=== PATIENT | female | born 1940 | race Caucasian/White ===

== ENCOUNTER 2017-09-15 09:07 | Observation (INO) ==
[2017-09-15] MEDS ORDERED: CeFAZolin Syr 2,000MG/20 ML 2,000 MG/20 ML SYRINGE IVPB ONE ×2 (09:26→14:36)
[2017-09-15] MEDS ORDERED: Lidocaine -MPF 1% 2 ML VIAL ID ONE (09:26)
[2017-09-15] MEDS ORDERED: Plasma-Lyte A (PH 7.4) 1,000 ML IVC SCH ×2 (09:30→14:36)
--- NOTE | 2017-09-15 10:13 | Anesthesia Evaluation PreOp ---
Date of Encounter: 09/15/17 Time of Encounter: 10:11 - Past History Planned Operation: correct right foot hammertoes, multiple Cardiac History: HTN, Arrhythmia (hx a-fib s/p ablation), Pacemaker/ICD (not dependent), Other (PE x 2) Pulmonary History: Asthma [employer]ATOR History: TIA (no residual) Other Medical History: Thyroid (hypo) Anesthesia History: No Prior Anesthetic Complications, Past Anesthesia (pacer, b /l TKA, DYANA, appy, right CEA, bladder stim) Alcohol Use: none Drug use: none Medications and Allergies Aspirin Enteric Coated [Aspirin EC] 81 mg PO DAILY 01/15/16 [History] Citalopram Hydrobromide [Citalopram HBr] 40 mg PO DAILY 01/15/16 [History] Zolpidem [Ambien] 10 mg PO HS PRN 01/15/16 [History] Calcium Carbonate/Vitamin D3 [Calcium 500 + Vit D 200 Caplet] 1 tab PO DAILY 09/01 [History] Cranberry 500 mg PO DAILY 09/15/17 [History] Divalproex (12 HR) [Depakote (12 HR)] 500 mg PO DAILY 09/15/17 [History] Gabapentin [Neurontin] 300 mg PO QID 09/15/17 [History] Levothyroxine [Synthroid] 75 mcg PO DAILY 09/15/17 [History] Metoprolol XL (24 HR) Succ [Toprol XL] 25 mg PO DAILY 09/15/17 [History] Nitrofurantoin (BID) [Macrobid] 100 mg PO BID 09/15/17 [History] 3 Allergy/AdvReac Type Severity Reaction Status Date / Time acetaminophen [From Lortab] AdvReac Itching Verified 09/15/17 09:35 ciprofloxacin [From Cipro] AdvReac Nausea Verified 09/15/17 09:35 codeine AdvReac Nausea Verified 09/15/17 09:35 diphenhydramine AdvReac Anxiety Verified 09/15/17 09:35 [From Benadryl] hydrocodone [From Lortab] AdvReac Itching Unverified 09/15/17 09:35 iodine AdvReac Itching Verified 09/15/17 09:35 metronidazole [From Flagyl] AdvReac Nausea Verified 09/15/17 09:35 sulfamethoxazole AdvReac Nausea Verified 09/15/17 09:35 [From Bactrim] trimethoprim [From Bactrim] AdvReac Nausea Verified 09/15/17 09:35 - Meds/Allergy Pre-op Review Medications Reviewed: Yes Allergies Reviewed: Yes Beta Blockers on Current Med List: Yes If Beta Blockers taken, Date/Time (Last Dose taken): today 1030 Anesthesia Results - Labs Laboratory Tests 08/30/17 08/30/17 15:15 15:15 Hgb 11.7 Hct 36.7 Potassium 4.2 Creatinine 0.86 Anesthesia Exam Selected Entries 09/15/17 09:34 Temperature 97.2 F L Pulse Rate 79 Respiratory Rate 18 Blood Pressure 121/67 O2 Sat by Pulse Oximetry 97 Weight: 69kg NPO (# of Hours): 8 - HEENT Pupil (Motor): EOMI Mallampati: II Teeth: Normal Oral Opening: Greater than 3 - [employer] LOC: Oriented [employer] Motor: Normal RUE, Normal LUE, Normal RLE, Normal LLE, Normal Face [employer] Sensory: Normal: RUE, LUE, RLE, LLE, Face - Cardiac Rhythm: Regular Murmur: None - Pulmonary Breath Sounds: bilateral Clear Respiratory Effort: Symmetrical Anesthesia Assess/Plan ASA Score: 3 Modified [place] Scale for Level of Consciousness: Cooperative, oriented, and tranquil Anesthetic Plan: General Monitoring Plan: Standard Monitors Recovery Plan: PACU (agrees to GA)
[2017-09-15] MEDS ORDERED: *HR* Propofol 200 MG/20 ML VIAL IVP ONE (10:33)
[2017-09-15] MEDS ORDERED: Dexamethasone 4 MG/ML VIAL ONE ×2 (10:33)
[2017-09-15] MEDS ORDERED: *HR* FentaNYL (PF) 100 MCG/2 ML VIAL ONE (10:33)
[2017-09-15] MEDS ORDERED: Lidocaine -MPF 2% 2 ML VIAL ONE (10:33)
[2017-09-15] MEDS ORDERED: Ondansetron 4 MG/2 ML VIAL ONE (10:33)
[2017-09-15] MEDS ORDERED: Metoprolol XL (24 HR) Succ 25 MG TAB.ER.24H PO SCH (10:48)
[2017-09-15] MEDS ORDERED: Bupivacaine/EPI 1:200k 0.5%PF 30 ML VIAL ONE (11:07)
[2017-09-15] MEDS ORDERED: Bupivacaine-MPF 0.25% 10 ML VIAL ONE (11:07)
[2017-09-15] MEDS ORDERED: Bupivacaine/Clonidine Syringe 1 EACH SYRINGE ONE (11:08)
--- NOTE | 2017-09-15 11:12 | History & Physical Report ---
Date of Encounter: 09/15/17 Time of Encounter: 11:11 24 Hour HP Update - Instructions Instructions: If the History and Physical is less than 30 days old and was completed prior to A.M. admission and or procedure and has NOT been updated on calendar day of procedure please complete this update prior to performing procedure. - Update Patient reports changes in Medical Condition: No Changes in examination, assessment, or condition: No Changes in Medication: No Preop tests/diagnostics Reviewed: Yes Pre-Op MRSA Screen: Negative Surgery Remains Indicated: Yes Consent for Planned Operative Procedure(s) Verified: Yes
[2017-09-15] MEDS ORDERED: *HR* PHENYLEPHRINE 1,000 MCG/10 ML SYRINGE IVP ONE (11:45)
[2017-09-15] MEDS ORDERED: MORPHINE SUL Oral CONC 10 MG/0.5 ML ORAL.SYG SL PRN (12:09)
[2017-09-15] MEDS ORDERED: traMADol 50 MG TABLET PO PRN (13:47)
--- NOTE | 2017-09-15 14:03 | Anesthesia Evaluation Post Op ---
Date of Encounter: 09/15/17 Time of Encounter: 14:02 - Vital Signs Vital Signs: Vital Signs/O2 Sat/Glucose, Most Recent Temp Pulse Resp BP Pulse Ox 97.2 F L 79 18 121/67 97 09/15/17 09:34 09/15/17 09:34 09/15/17 09:34 09/15/17 09:34 09/15/17 09:34 - Lungs Lungs: Clear Ascult./Percussion - Airway Airway: Non-obstructed - Cardiovascular Regular Rate - Mental Status Mental Status: Alert & Oriented, Answers Appropriately - Pain Pain Scale: 0 Pain Scale used: Numeric (1 - 10) - Nausea Vomiting Nausea Vomiting: Not Present - Hydration Hydration: Ice chips, Has not voided Notes: 09/15/17 14:03 AAOx3,VSS with no complaints - Discharge PostOp Status: Transfer Patient to floor
[2017-09-15] MEDS: Gabapentin 300 MG CAPSULE PO SCH ×2 (15:44→21:21)
--- NOTE | 2017-09-15 16:49 | Orthopedic Operative Note ---
Date of procedure: 09/15/17 Pre-op diagnosis: Hammer toe deformity #1 #2 #3-4 #5 right foot Post-op diagnosis: same Procedure: 09/15/17 16:46 #1 correction of hammertoe deformity arthrodesis, IPJ #1 toe right foot #2 correction hammertoe deformity arthrodesis, PIPJ #2 toe right foot #3 correction of hammertoe deformity arthrodesis PIPJ #3 toe right foot #4 correction of hammertoe deformity arthrodesis PIPJ #4 toe right foot #5 correction of hammertoe deformity resection of, head of proximal phalanx, #5 toe right foot Implants: #1:0.62 K wires 2 for the right great toe #2: 0.62 K wire 1 #4 toe right foot #3 Arthrex 2.5 PIPJ dart implants 2 toe (#2 #3 right foot). Complications: None Anesthesia: other (LMA) Local Anesthetics: 0.25% Sensorcaine HCL with Epinephrine 1:200,000 SubQ (cc), 0.25% Sensorcaine HCL SubQ (cc) Surgeon: Vinny Neely Was there an microbiology lab assistant present: No Estimated blood loss (cc): 10 Tourniquet Time (Minutes): 0 Specimen: None Condition: stable Disposition: PACU Procedure in Detail: 09/15/17 16:52 Details in summary of procedure: The patient was brought to surgical suite. A sign in procedure was performed. The patient was then transferred to the surgical table. She was then positioned properly safely and securely. Right foot and leg was elevated on a foam block. Anesthetic timeout was taken. After smooth induction of general anesthesia was achieved per LMA. At that point right ankle was then prepped with alcohol 3 times in a modified ankle block was carried out using Marcaine with clonidine. The right foot was then prepped and draped in usual sterile manner. Surgical timeout was taken. An S-shaped incision was begun midline of the right great toe in the midportion of the proximal phalanx and brought distally to the IP joint and then medially to the junction of the medial plantar scan of the right great toe and then distally along that line. Sharp dissection was gently deepened to the deep fascial layer were tissue plane was developed medially and laterally. Thus exposing the IP joint. It was then entered in a transverse fashion exposing the head of the proximal phalanx and the base the distal phalanx which was then resected dorsal plantar fashion using command power saw. Bone was flushed with copious sterile saline. 2062 K wires then driven through the distal phalanx exiting the distal pulp of the toe and retrograded into the proximal phalanx and positions were confirmed by C-arm fluoroscopy. Excellent compression and apposition was achieved. The wounds were flushed again with copious amounts sterile saline suction afforded complete visualization. The wound was sprayed with PRP and closure was uneventful using 3-0 Vicryl for subcutaneous tissue and 3-0 Prolene for the skin pins were then cut and bent appropriate angles attention was then turned to the second toe of the right foot. A standard dorsal linear incision was carried out midline the base the proximal phalanx to the middle phalanx. It was sharp in through dissection with a #15 scalpel blade to the deep fascia with gentle retraction tissue plane was developed medially and laterally at the proximal interphalangeal joint. A transverse capsulotomy was performed at the PIPJ head of the proximal phalanx was delivered into the wound by reflecting all the extensor apparatus and tendon proximally as well as distally at the base middle phalanx. Head of the proximal phalanx and the base of the distal phalanx were then resected using a command power saw. At that point an Arthrex 2.5 hammertoe dart implant was then placed according to protocol and found to be appropriate in position and compression. The wound was flushed with copious amount sterile saline finding no bone chips or debris the wound was sprayed with PRP and closure was performed with 3-0 Vicryl for the extensor apparatus and the tendon closure and the skin repaired with 3-0 Prolene. The exact same procedure was then performed for the third toe without any additions or deletions. Attention was then turned to the fourth toe. A standard midline incision was begun at the base the proximal phalanx and brought distally to the middle phalanx. Dissection was continued to the deep fascial layer with #15 scalpel blade where the extensor foot apparatus and the PIPJ was then exposed. The joint was entered and transversely and the soft tissue reflected proximally and distally. The head of the proximal phalanx and the base middle phalanx was then resected using a command power saw. The wound was flushed with copious amounts sterile saline. Attempts to place an Arthrex implant proved to be difficult because of the length of the implant itself. It was then elected to place a K wire. At that point a 62 K wire was then driven through the middle and distal phalanx exiting the distal pulp of the toe and retrograded into the proximal phalanx and placement was confirmed with C-arm fluoroscopy. The toe was then flushed with copious sterile saline and capsular structure and tendon repair were performed with 3-0 Vicryl and skin repaired with 3-0 Prolene Attention was then turned to the fifth toe where standard dorsal linear incision was carried out over the PIPJ. Sharp dissection was continued down to the capsular structures the PIPJ was then entered transversely soft tissue was reflected off the head of the proximal phalanx. Head of the proximal phalanx was then divided and dorsal plantar fashion using command power saw resected cleanly. The wound was flushed with copious amounts sterile saline. Soft tissue was then repaired with 3-0 Vicryl and skin repaired with 3-0 Prolene. Excellent positioning of the digit was achieved. All digits #1, #2 #3 #4 #5 found themselves to be a complete rectus position with excellent correction of the deformity. Capillary wound time is less than 3 seconds after completion of all the procedures and application of the dressings. At that juncture the wounds are dressed with sterile Adaptic 4 x 4' s and Kerlix with a buttress pad underneath the toes for support. Estimated blood loss less than 10 mL complications encountered none patient tolerated the procedure and anesthesia well and was sent to PACU in good condition with vital signs stable.
[2017-09-15] MEDS: *HR* Enoxaparin 80 MG/0.8 ML SYRINGE SQ SCH (16:59)
[2017-09-15] MEDS: traMADol 50 MG TABLET PO PRN (18:20)
[2017-09-15] MEDS: Nitrofurantoin (BID) 100 MG CAPSULE PO SCH (21:21)
[2017-09-15] MEDS: *HR* HYDROmorphone (PF) 1 MG/ML SYRINGE IVP PRN (21:22)
[2017-09-15] MEDS: Divalproex (12 HR) 500 MG TABLET PO SCH (21:28)
[2017-09-16] MEDS: traMADol 50 MG TABLET PO PRN ×3 (04:02→22:42)
[2017-09-16] MEDS: *HR* Enoxaparin 80 MG/0.8 ML SYRINGE SQ SCH ×2 (04:06→18:51)
[2017-09-16] MEDS ORDERED: Metoprolol XL (24 HR) Succ 25 MG TAB.ER.24H PO SCH ×2 (09:00)
[2017-09-16] MEDS: (Calcium Carbonate/Vitamin D3 [Calcium 500-Vit D3 200 PO SCH (09:06)
[2017-09-16] MEDS: Metoprolol XL (24 HR) Succ 25 MG TAB.ER.24H PO SCH (09:25)
[2017-09-16] MEDS: Aspirin Enteric Coated 81 MG Tablet PO SCH (09:25)
[2017-09-16] MEDS: Gabapentin 300 MG CAPSULE PO SCH ×4 (09:25→22:42)
[2017-09-16] MEDS: Nitrofurantoin (BID) 100 MG CAPSULE PO SCH ×2 (09:25→22:42)
--- NOTE | 2017-09-16 17:17 | Podiatry Progress Note ---
Date of Encounter: 09/16/17 Time of Encounter: 17:00 - Assessment and Plan (1) Hammertoe of right foot Current Visit: Yes Status: Acute s/p #1 correction of hammertoe deformity arthrodesis, IPJ #1 toe right foot #2 correction hammertoe deformity arthrodesis, PIPJ #2 toe right foot #3 correction of hammertoe deformity arthrodesis PIPJ #3 toe right foot #4 correction of hammertoe deformity arthrodesis PIPJ #4 toe right foot #5 correction of hammertoe deformity resection of, head of proximal phalanx, #5 toe right foot per on 09/15/17 Patient admit for 23 hour observation today PT/OT order for evaluation Patient to ambulate with CAM boot to right foot and weight to heel only Will have kennedy from bracing bring boot to bedside Patient expressing concern about sleeping and pain tonight, order for xanax 0.5mg this evening prior to bedtime Order printed for Tramadol 50mg PO BID to take home for pain medication- [place]ARRS reviewed and appropriate- No active narcotic prescriptions Patient instructed on ambulation, aftercare, instructed to keep dressing dry and intact, elevate foot above heart level, limit activity at this time and wear boot with all ambulation. Verbalized understanding Instructed to call with fevers, chills n/v or flu like symptoms Subjective Interval history: s/p #1 correction of hammertoe deformity arthrodesis, IPJ #1 toe right foot #2 correction hammertoe deformity arthrodesis, PIPJ #2 toe right foot #3 correction of hammertoe deformity arthrodesis PIPJ #3 toe right foot #4 correction of hammertoe deformity arthrodesis PIPJ #4 toe right foot #5 correction of hammertoe deformity resection of, head of proximal phalanx, #5 toe right foot per on 09/15/17 Patient resting comfortably in bed on arrival. No issues or complaints. Denies fevers, chills, n/v or flu like symptoms. Denies calf pain or SOB. Stated she started having pain about 4pm and took pain medication per nursing staff admin. Objective - Vital Signs Vital Signs: Vital Signs Temp Pulse Resp BP Pulse Ox 09/16/17 15:13 97.2 F L 75 18 97/60 92 09/16/17 11:42 98.1 F 75 18 94/58 97 09/16/17 07:36 97.9 F 73 15 130/66 96 09/15/17 23:29 97.4 F L 74 16 81/51 91 09/15/17 19:55 98.4 F 88 15 139/83 96 Intake and Output 09/16/17 09/16/17 09/16/17 07:59 15:59 23:59 Intake Total 240 / 240 Balance 240 / 240 Intake: Oral 240 / 240 Other: Meal Lunch Percent of Meal Consumed 95% # Voids 1 2 - Exam Exam: Awake alert and oriented Dressing intact to surgical foot, no strikethrough drainage. Will leave intact at this time. No reason to change Cap refill immediate to toes Toes warm to touch No calf pain with manual compression - VTE Documentation of Mechanical Device: Intermittent pneumatic compression device Consult Discharge Plan - Plan Referrals: Nash Clifford DO [Primary Care Provider] - Prescriptions: Tramadol HCl [Ultram] 50 mg PO BID PRN 7 Days #14 tab PRN Reason: Pain
[2017-09-16] MEDS ORDERED: ALPRAZolam 0.5 MG TABLET PO ONE (21:00)
[2017-09-16] MEDS: Divalproex (12 HR) 500 MG TABLET PO SCH (22:42)
[2017-09-17] MEDS: *HR* Enoxaparin 80 MG/0.8 ML SYRINGE SQ SCH (07:30)
[2017-09-17] MEDS: Nitrofurantoin (BID) 100 MG CAPSULE PO SCH (07:31)
[2017-09-17] MEDS: Metoprolol XL (24 HR) Succ 25 MG TAB.ER.24H PO SCH (07:31)
[2017-09-17] MEDS: Aspirin Enteric Coated 81 MG Tablet PO SCH (07:32)
[2017-09-17] MEDS: Gabapentin 300 MG CAPSULE PO SCH ×2 (07:32→12:11)
[2017-09-17] MEDS: (Calcium Carbonate/Vitamin D3 [Calcium 500-Vit D3 200 PO SCH (07:32)
[2017-09-17 07:59] VITALS: BP 118/75
--- NOTE | 2017-09-17 10:35 | Podiatry Progress Note ---
Date of Encounter: 09/17/17 Time of Encounter: 10:20 - Assessment and Plan (1) Hammertoe of right foot Current Visit: Yes Status: Acute s/p right foot hammertoe correction 1-[address] Neely. Dressing is clean, dry and intact, without strikethrough, pins exiting digits show no signs of infection. Patient is stable for discharge. Leave bandage clean, dry, and intact. Do not get bandage wet. Do not remove bandage. Tramadol Rx in chart. Wear cam walker boot. Follow up with Dr. Neely or CNPs as scheduled. Subjective Interval history: s/p hammertoe correction 1-5 right foot. denies f/c/n/v/sob/cp/calf pain. no falls or accidents. some pain. patient was able to get OOB to chair, she has been wearing the cam walker boot. Objective - Vital Signs Vital Signs: Vital Signs Temp Pulse Resp BP Pulse Ox 09/17/17 07:58 97.4 F L 65 15 118/75 94 09/17/17 07:36 94 09/17/17 00:17 98.4 F 74 16 111/68 94 09/16/17 20:54 98.0 F 75 12 123/72 94 09/16/17 15:13 97.2 F L 75 18 97/60 92 09/16/17 11:42 98.1 F 75 18 94/58 97 Intake and Output 09/16/17 09/17/17 09/17/17 23:59 07:59 15:59 Intake Total 320 / 320 Output Total 150 / 150 Balance 320 / 320 -150 / -150 Intake: Oral 320 / 320 Output: Urine 150 / 150 Other: Meal Dinner Percent of Meal Consumed 95% # Voids 2 - Exam Exam: AOx3, in no acute distress right foot bandage clean, dry, and intact. no erythema at tips of digits, no drainage from pin sites. no strike through on rest of bandage. no calf pain with squeeze. toes are warm to touch. CFT < 3 sec x 5 digits. non-labored respirations. - VTE Documentation of Mechanical Device: Venous foot pump, device Consult Discharge Plan - Plan Referrals: Nash Clifford DO [Primary Care Provider] - Prescriptions: Tramadol HCl [Ultram] 50 mg PO BID PRN 7 Days #14 tab PRN Reason: Pain
[2017-09-17] MEDS: *HR* HYDROmorphone (PF) 1 MG/ML SYRINGE IVP PRN (12:11)
[2017-09-17] MEDS: traMADol 50 MG TABLET PO PRN (14:22)
== END 2017-09-17 15:13 | disposition home health service (06) ==
LOC: 3NENU 09:07 → SAMDAY 09:07 → 3NENU 14:39
PROVIDERS: ADMIT Podiatrist Foot Surgery; ATTEND Podiatrist Foot Surgery

== ENCOUNTER 2020-10-21 10:28 | Inpatient (IN) ==
[2020-10-21] MEDS ORDERED: Isovue-370 500 ML BOTTLE IVP ONE (11:10)
[2020-10-21 11:28] LABS: Basophils % 0.4 %; Eosinophils # 0.1 K/mcL (0.0-0.6); Eosinophils % 1.8 %; Hematocrit 35.9 % (35.3-44.9); Hemoglobin 11.3 g/dL (11.5-15.4); Immature Granulocytes % 0.2 % (0-4); Lymphocytes # 1.1 K/mcL (0.6-4.6); Lymphocytes % 21.6 %; Mean Corpuscular HGB Conc 31.5 g/dL (31.6-35.5); Mean Corpuscular Hemoglobin 30.7 pg (28.0-33.3); Mean Corpuscular Volume 97.6 fL (83.0-100.0); Mean Platelet Volume 9.8 fL (9.4-12.4); Monocytes # 0.5 K/mcL (0.0-1.3); Neutrophils # 3.4 K/mcL (1.6-8.9); Platelet Count 235 K/mcL (140-400); Red Blood Count 3.68 M/mcL (3.82-4.97); Red Cell Distribution Width 13.2 % (11.5-14.5)
[2020-10-21 11:51] LABS: BUN/Creatinine Ratio 26 (6-26); Blood Urea Nitrogen 23 mg/dL (8-23); Calcium 9.2 mg/dL (8.6-10.3); Carbon Dioxide 31 mEq/L (23-29); Chloride 100 mEq/L (98-107); Glucose 91 mg/dL (70-105); Osmolality,Calculated 289 (280-300); Sodium 138 mEq/L (136-145); Troponin I < 0.03 ng/mL (< 0.04); eGFR For African Americans > 60 (> 60); eGFR For Non-African Americans > 60 (> 60)
[2020-10-21] MEDS ORDERED: *HR* Heparin 5,000 UNIT/ML VIAL IVP ONE (15:09)
[2020-10-21] MEDS ORDERED: *HR* Heparin 5,000 UNIT/ML VIAL IVP PRN ×2 (15:09)
[2020-10-21] MEDS ORDERED: Heparin 25,000UNIT/250ML 1/2NS 25,000 UNIT/250 ML IV.SOLN IVC SCH (15:15)
[2020-10-21 15:37] LABS: Hematocrit 33.8 % (35.3-44.9); Mean Corpuscular HGB Conc 32.5 g/dL (31.6-35.5); Mean Corpuscular Volume 95.2 fL (83.0-100.0); Mean Platelet Volume 9.6 fL (9.4-12.4); Platelet Count 214 K/mcL (140-400); Red Blood Count 3.55 M/mcL (3.82-4.97); Red Cell Distribution Width 12.9 % (11.5-14.5)
[2020-10-21] MEDS ORDERED: *HR* HYDROcodone/Acet 5/325 mg TABLET PO PRN (15:41)
[2020-10-21] MEDS ORDERED: Ondansetron 4 MG/2 ML VIAL IVP PRN (15:41)
[2020-10-21] MEDS ORDERED: Naloxone 0.4 MG/ML INJ IVP PRN (15:41)
[2020-10-21 15:45] LABS: Heparin anti-factor XA UFH < 0.04 IU/mL (0.30-0.70); Prothrombin Time 11.7 Seconds (9.4-12.1)
[2020-10-21] MEDS ORDERED: Perflutren Lipid Microsphere 1.3 ML in 0.9 % Sodium Chloride 8.7 ML IVP PRN (16:33)
[2020-10-21] MEDS ORDERED: Ipratropium/Albuterol Neb 3 ML IH PRN (16:50)
[2020-10-21 17:06] LABS: Alanine Aminotransferase 13 Units/L (7-52); Albumin 4.1 g/dL (3.5-5.7); Albumin/Globulin Ratio 1.4 (1.1-2.2); Alkaline Phosphatase 100 Units/L (34-104); Aspartate Amino Transferase 20 Units/L (13-39); Bilirubin,Direct 0.2 mg/dL (0.0-0.2); Bilirubin,Indirect 0.3 mg/dL (0.0-1.0); Bilirubin,Total 0.5 mg/dL (0.3-1.0); Total Protein 7.1 g/dL (6.4-8.9)
[2020-10-21] MEDS: Fluconazole 150 MG TABLET PO SCH ×2 (17:27→18:27)
[2020-10-21 18:01] LABS: Bacteria,Urine Few per hpf (None-Few); Bilirubin,Urine Negative (Negative); Blood,Urine Negative (Negative); Clarity,Urine Clear (Clear); Color,Urine Light-Yellow (Yellow); Glucose,Urine (UA) Normal (Normal); Ketones,Urine Negative (Negative); Leukocyte Esterase,Urine Moderate (Negative); Mucus,Urine Few per lpf (None-Few); Nitrite,Urine Positive (Negative); PH,Urine 7.5 pH Units (5.0-8.0); Protein,Urine Negative (Neg-Trace); Specific Gravity,Urine > 1.030 (1.010-1.025); Urobilinogen,Urine Normal (Normal); WBC,Urine 15-30 per hpf (0-3)
[2020-10-21] MEDS: Melatonin 3 MG TABLET PO SCH (20:12)
[2020-10-21] MEDS: Nystatin POWDER 30 GM BOTTLE TP SCH (20:13)
[2020-10-21] MEDS ORDERED: Bumetanide 1 MG/4 ML VIAL IVP SCH (21:00)
[2020-10-22 00:57] LABS: Hematocrit 32.6 % (35.3-44.9); Hemoglobin 10.4 g/dL (11.5-15.4); Immature Granulocytes % 0.2 % (0-4); Lymphocytes # 0.5 K/mcL (0.6-4.6); Lymphocytes % 11.2 %; Mean Corpuscular HGB Conc 31.9 g/dL (31.6-35.5); Mean Corpuscular Hemoglobin 30.8 pg (28.0-33.3); Mean Corpuscular Volume 96.4 fL (83.0-100.0); Mean Platelet Volume 9.9 fL (9.4-12.4); Monocytes # 0.1 K/mcL (0.0-1.3); Monocytes % 1.1 %; Neutrophils # 4.1 K/mcL (1.6-8.9); Platelet Count 218 K/mcL (140-400); Red Blood Count 3.38 M/mcL (3.82-4.97); Red Cell Distribution Width 13.1 % (11.5-14.5); Segmented Neutrophils % 87.5 %; White Blood Count 4.7 K/mcL (4.3-11.1)
[2020-10-22 01:15] LABS: BUN/Creatinine Ratio 25 (6-26); Blood Urea Nitrogen 25 mg/dL (8-23); Calcium 8.8 mg/dL (8.6-10.3); Carbon Dioxide 26 mEq/L (23-29); Chloride 102 mEq/L (98-107); Glucose 175 mg/dL (70-105); Magnesium 2.2 mg/dL (1.6-2.6); Osmolality,Calculated 293 (280-300); Phosphorous 3.3 mg/dL (2.7-4.5); Potassium 3.9 mEq/L (3.5-5.1); Sodium 137 mEq/L (136-145); eGFR For African Americans > 60 (> 60); eGFR For Non-African Americans 53 (> 60)
[2020-10-22] MEDS: Metoprolol XL (24 HR) Succ 25 MG TAB.ER.24H PO SCH (08:07)
[2020-10-22] MEDS: Furosemide 40 MG/4 ML VIAL IVP SCH ×2 (08:08→18:05)
[2020-10-22] MEDS: Nystatin POWDER 30 GM BOTTLE TP SCH ×2 (08:09→21:12)
[2020-10-22] MEDS ORDERED: NON-FORMULARY MEDICATION 1 EACH EACH (Bumetanide 2 MG Tablet) PO SCH (09:00)
[2020-10-22] MEDS ORDERED: Fluconazole 150 MG TABLET PO SCH (09:00)
[2020-10-22 14:12] LABS: Heparin anti-factor XA UFH 0.61 IU/mL (0.30-0.70)
[2020-10-22 14:53] LABS: INR 1.1; Prothrombin Time 12.6 Seconds (9.4-12.1)
[2020-10-22] MEDS ORDERED: Warfarin perPT PO PRN (18:00)
[2020-10-22] MEDS ORDERED: *HR* Warfarin 2.5 MG TABLET PO ONE (18:00)
[2020-10-22] MEDS: Apixaban 5 MG TABLET PO SCH (18:05)
[2020-10-22] MEDS: Melatonin 3 MG TABLET PO SCH (22:12)
[2020-10-23] MEDS: Furosemide 40 MG/4 ML VIAL IVP SCH (07:30)
[2020-10-23] MEDS: Apixaban 5 MG TABLET PO SCH (07:31)
[2020-10-23] MEDS: Metoprolol XL (24 HR) Succ 25 MG TAB.ER.24H PO SCH (07:31)
[2020-10-23] MEDS: Nystatin POWDER 30 GM BOTTLE TP SCH (07:32)
[2020-10-23 08:16] LABS: Calcium 8.8 mg/dL (8.6-10.3); Potassium 3.8 mEq/L (3.5-5.1)
[2020-10-23 11:14] VITALS: BP 108/67
[2020-10-23] MEDS ORDERED: polyethylene glycoL 3350 17 GM POWD.PACK PO PRN (11:22)
== END 2020-10-23 17:58 | disposition home health service (06) | DRG 299 ==
LOC: 2ANU 10:28 → EMEROOARM 10:28 → SUATTDRO 16:12 → 2ANU 17:04
PROVIDERS: ADMIT Internal Medicine; ATTEND Internal Medicine

== ENCOUNTER 2020-11-27 15:09 | Inpatient (IN) ==
[2020-11-27] MEDS ORDERED: Bumetanide 1 MG/4 ML VIAL IVP ONE (15:58)
[2020-11-27 16:46] LABS: Basophils % 0.4 %; Eosinophils # 0.1 K/mcL (0.0-0.6); Eosinophils % 1.1 %; Hematocrit 37.8 % (35.3-44.9); Hemoglobin 12.2 g/dL (11.5-15.4); Immature Granulocytes % 0.2 % (0-4); Lymphocytes # 1.5 K/mcL (0.6-4.6); Lymphocytes % 27.8 %; Mean Corpuscular HGB Conc 32.3 g/dL (31.6-35.5); Mean Corpuscular Hemoglobin 30.6 pg (28.0-33.3); Mean Corpuscular Volume 94.7 fL (83.0-100.0); Mean Platelet Volume 9.7 fL (9.4-12.4); Monocytes # 0.4 K/mcL (0.0-1.3); Neutrophils # 3.5 K/mcL (1.6-8.9); Platelet Count 230 K/mcL (140-400); Red Blood Count 3.99 M/mcL (3.82-4.97); Segmented Neutrophils % 62.5 %; White Blood Count 5.5 K/mcL (4.3-11.1)
[2020-11-27 16:55] LABS: INR 1.7
[2020-11-27 16:58] LABS: Activated Partial Thrombo Time 33.7 Seconds (26.0-36.0)
[2020-11-27 17:06] LABS: BUN/Creatinine Ratio 28 (6-26); Blood Urea Nitrogen 30 mg/dL (8-23); Calcium 9.5 mg/dL (8.6-10.3); Carbon Dioxide 33 mEq/L (23-29); Chloride 93 mEq/L (98-107); Glucose 89 mg/dL (70-105); Osmolality,Calculated 290 (280-300); Potassium 3.1 mEq/L (3.5-5.1); Sodium 137 mEq/L (136-145); Troponin I < 0.03 ng/mL (< 0.04); eGFR For African Americans > 60 (> 60); eGFR For Non-African Americans 50 (> 60)
[2020-11-27] MEDS ORDERED: Isovue-370 500 ML BOTTLE IVP ONE (17:17)
[2020-11-27 18:44] LABS: Bilirubin,Urine Negative (Negative); Blood,Urine Negative (Negative); Clarity,Urine Clear (Clear); Color,Urine Colorless (Yellow); Glucose,Urine (UA) Normal (Normal); Ketones,Urine Negative (Negative); Leukocyte Esterase,Urine Trace (Negative); Nitrite,Urine Negative (Negative); Protein,Urine Negative (Neg-Trace); RBC,Urine 0-3 per hpf (0-3); Specific Gravity,Urine 1.006 (1.010-1.025); Urobilinogen,Urine Normal (Normal); WBC,Urine 15-30 per hpf (0-3)
[2020-11-27 20:02] LABS: Adenovirus Not Detected (Not Detect); Bordetella Pertussis Not Detected (Not Detect); Chlamydophila pneumoniae Not Detected (Not Detect); Coronavirus 229E Not Detected (Not Detect); Coronavirus HKU1 Not Detected (Not Detect); Coronavirus NL63 Not Detected (Not Detect); Coronavirus OC43 Not Detected (Not Detect); Human Metapneumovirus Not Detected (Not Detect); Human Rhinovirus/Enterovirus Not Detected (Not Detect); Influenza A Subtype 2009 H1 Not Detected (Not Detect); Influenza B Not Detected (Not Detect); Mycoplasma pneumoniae Not Detected (Not Detect); Parainfluenza Virus 1 Not Detected (Not Detect); Parainfluenza Virus 2 Not Detected (Not Detect); Parainfluenza Virus 3 Not Detected (Not Detect); Parainfluenza Virus 4 Not Detected (Not Detect); Respiratory Syncytial Virus Not Detected (Not Detect); SARS-CoV-2 Not Detected (Not Detect)
[2020-11-27] MEDS ORDERED: Melatonin 3 MG TABLET PO PRN (21:43)
[2020-11-27] MEDS ORDERED: Naloxone 0.4 MG/ML INJ IVP PRN (21:43)
[2020-11-27] MEDS ORDERED: Ondansetron 4 MG/2 ML VIAL IVP PRN (21:43)
[2020-11-27] MEDS ORDERED: NON-FORMULARY MEDICATION 1 EACH EACH (Apixaban [Eliquis] 5 MG Tab.Ds.Pk) PO SCH (21:45)
[2020-11-27] MEDS: Acetaminophen 325 MG TABLET PO PRN (22:24)
[2020-11-28] MEDS ORDERED: Ipratropium/Albuterol Neb 3 ML IH PRN (00:14)
[2020-11-28] MEDS ORDERED: *HR* Enoxaparin 80 MG/0.8 ML SYRINGE SQ SCH (00:30)
[2020-11-28] MEDS: Ipratropium/Albuterol Neb 3 ML IH SCH ×6 (03:59→23:22)
[2020-11-28 04:01] LABS: Basophils % 0.7 %; Eosinophils # 0.1 K/mcL (0.0-0.6); Eosinophils % 1.5 %; Hematocrit 35.5 % (35.3-44.9); Hemoglobin 11.6 g/dL (11.5-15.4); Immature Granulocytes % 0.2 % (0-4); Lymphocytes # 1.3 K/mcL (0.6-4.6); Lymphocytes % 28.1 %; Mean Corpuscular HGB Conc 32.7 g/dL (31.6-35.5); Mean Corpuscular Hemoglobin 31.4 pg (28.0-33.3); Mean Corpuscular Volume 95.9 fL (83.0-100.0); Mean Platelet Volume 9.9 fL (9.4-12.4); Monocytes # 0.5 K/mcL (0.0-1.3); Monocytes % 11.3 %; Neutrophils # 2.6 K/mcL (1.6-8.9); Platelet Count 211 K/mcL (140-400); Segmented Neutrophils % 58.2 %; White Blood Count 4.5 K/mcL (4.3-11.1)
[2020-11-28 04:13] LABS: Prothrombin Time 22.7 Seconds (9.4-12.1)
[2020-11-28 04:24] LABS: Albumin 3.9 g/dL (3.5-5.7); Albumin/Globulin Ratio 1.4 (1.1-2.2); Bilirubin,Total 0.5 mg/dL (0.3-1.0); Calcium 9.2 mg/dL (8.6-10.3); Globulin 2.8 g/dL (2.4-3.5); Magnesium 2.1 mg/dL (1.6-2.6); Potassium 3.3 mEq/L (3.5-5.1); Total Protein 6.7 g/dL (6.4-8.9)
[2020-11-28] MEDS ORDERED: *HR* OxyCODONE Immed Rel 5 MG TABLET PO PRN (05:03)
[2020-11-28] MEDS ORDERED: 0.9 % Sodium Chloride 250 ML IVC ONE (07:13)
[2020-11-28] MEDS ORDERED: 0.9 % Sodium Chloride 250 ML ONE (07:15)
[2020-11-28] MEDS: Bumetanide 1 MG TABLET PO SCH ×2 (07:34→17:09)
[2020-11-28] MEDS ORDERED: MethylPREDNISolone 40 MG/ML VIAL IVP SCH (08:00)
[2020-11-28 09:15] LABS: ABG Base Excess 7 mEq/L (-2 to 3); ABG HCO3 32 mEq/L (21-27); ABG Oxygen Saturation 93 % (95-98); ABG PCO2 50 mmHg (35-45); ABG PH 7.42 pH Units (7.32-7.45); ABG PO2 67 mmHg (85-104); ABG TCO2 34 mEq/L (20-26)
[2020-11-28] MEDS: Piperacillin/Tazobactam 3.375 GM in 0.9 % Sodium Chloride Mini Bag 100 ML IVPB SCH ×2 (11:35→15:00)
[2020-11-28] MEDS: Acetaminophen 325 MG TABLET PO PRN (14:05)
[2020-11-28] MEDS ORDERED: GuaiFENesin/Codeine Oral Soln 5 ML UDC PO PRN (14:49)
[2020-11-28] MEDS ORDERED: Ibuprofen 600 MG TABLET PO ONE (14:49)
[2020-11-28] MEDS: MethylPREDNISolone 40 MG/ML VIAL IVP SCH (17:10)
[2020-11-28] MEDS ORDERED: Warfarin perPT PO PRN (18:00)
[2020-11-28] MEDS ORDERED: *HR* Warfarin 5 MG TABLET PO ONE (18:00)
[2020-11-29] MEDS: Piperacillin/Tazobactam 3.375 GM in 0.9 % Sodium Chloride Mini Bag 100 ML IVPB SCH ×3 (00:22→16:46)
[2020-11-29] MEDS: Ipratropium/Albuterol Neb 3 ML IH SCH ×5 (03:56→19:31)
[2020-11-29] MEDS: MethylPREDNISolone 40 MG/ML VIAL IVP SCH (05:30)
[2020-11-29] MEDS: *HR* HYDROcodone/Acet 5/325 mg TABLET PO PRN ×2 (05:30→14:00)
[2020-11-29 05:56] LABS: INR 2.3; Prothrombin Time 26.4 Seconds (9.4-12.1)
[2020-11-29] MEDS: Bumetanide 1 MG TABLET PO SCH (07:44)
[2020-11-29] MEDS: Metoprolol XL (24 HR) Succ 25 MG TAB.ER.24H PO SCH (07:57)
[2020-11-29] MEDS ORDERED: polyethylene glycoL 3350 17 GM POWD.PACK PO PRN (07:59)
[2020-11-29 09:05] LABS: Hematocrit 32.5 % (35.3-44.9); Hemoglobin 10.7 g/dL (11.5-15.4); Immature Granulocytes % 0.4 % (0-4); Lymphocytes # 0.6 K/mcL (0.6-4.6); Lymphocytes % 5.3 %; Mean Corpuscular HGB Conc 32.9 g/dL (31.6-35.5); Mean Corpuscular Hemoglobin 31.5 pg (28.0-33.3); Mean Corpuscular Volume 95.6 fL (83.0-100.0); Mean Platelet Volume 10.1 fL (9.4-12.4); Monocytes # 0.2 K/mcL (0.0-1.3); Platelet Count 204 K/mcL (140-400); Red Cell Distribution Width 13.3 % (11.5-14.5); Segmented Neutrophils % 92.3 %
[2020-11-29 09:06] LABS: Neutrophils # 10.3 K/mcL (1.6-8.9); White Blood Count 11.1 K/mcL (4.3-11.1)
[2020-11-29 09:31] LABS: Calcium 9.4 mg/dL (8.6-10.3); Potassium 3.2 mEq/L (3.5-5.1)
[2020-11-29] MEDS ORDERED: *HR* Warfarin 5 MG TABLET PO ONE (18:00)
[2020-11-30] MEDS: Ipratropium/Albuterol Neb 3 ML IH SCH ×7 (00:38→23:28)
[2020-11-30] MEDS: Piperacillin/Tazobactam 3.375 GM in 0.9 % Sodium Chloride Mini Bag 100 ML IVPB SCH ×2 (01:01→08:22)
[2020-11-30 01:09] LABS: ABG Base Excess 5 mEq/L (-2 to 3); ABG HCO3 30 mEq/L (21-27); ABG Oxygen Saturation 100 % (95-98); ABG PCO2 43 mmHg (35-45); ABG PH 7.45 pH Units (7.32-7.45); ABG PO2 172 mmHg (85-104); ABG TCO2 31 mEq/L (20-26); Blood Gas VT 370 cc
[2020-11-30 05:47] LABS: Hematocrit 32.4 % (35.3-44.9); Hemoglobin 10.2 g/dL (11.5-15.4); Mean Corpuscular HGB Conc 31.5 g/dL (31.6-35.5); Mean Corpuscular Volume 98.5 fL (83.0-100.0); Platelet Count 216 K/mcL (140-400); Red Blood Count 3.29 M/mcL (3.82-4.97); Red Cell Distribution Width 13.7 % (11.5-14.5); White Blood Count 11.6 K/mcL (4.3-11.1)
[2020-11-30 06:00] LABS: INR 2.5; Prothrombin Time 28.5 Seconds (9.4-12.1)
[2020-11-30 06:09] LABS: Calcium 9.3 mg/dL (8.6-10.3); Potassium 3.8 mEq/L (3.5-5.1)
[2020-11-30] MEDS: predniSONE 20 MG TABLET PO SCH (08:23)
[2020-11-30] MEDS: Metoprolol XL (24 HR) Succ 25 MG TAB.ER.24H PO SCH (08:24)
[2020-11-30] MEDS ORDERED: Benzonatate 100 MG CAPSULE PO PRN (10:30)
[2020-11-30] MEDS ORDERED: *HR* Warfarin 3 MG TABLET PO ONE (18:00)
[2020-11-30] MEDS: Melatonin 3 MG TABLET PO SCH (21:37)
[2020-12-01 03:30] LABS: Hematocrit 31.9 % (35.3-44.9); Hemoglobin 10.1 g/dL (11.5-15.4); Mean Corpuscular HGB Conc 31.7 g/dL (31.6-35.5); Mean Corpuscular Volume 97.9 fL (83.0-100.0); Mean Platelet Volume 9.9 fL (9.4-12.4); Platelet Count 201 K/mcL (140-400); Red Blood Count 3.26 M/mcL (3.82-4.97); Red Cell Distribution Width 13.8 % (11.5-14.5); White Blood Count 8.5 K/mcL (4.3-11.1)
[2020-12-01 03:35] LABS: VBG HCO3 28 mEq/L (21-27); VBG PCO2 40 mmHg (41-51); VBG PH 7.45 pH Units (7.32-7.42); VBG PO2 170 mmHg (25-50)
[2020-12-01 03:41] LABS: INR 3.2
[2020-12-01 03:49] LABS: Calcium 9.4 mg/dL (8.6-10.3); Potassium 3.9 mEq/L (3.5-5.1)
[2020-12-01] MEDS: Ipratropium/Albuterol Neb 3 ML IH SCH ×6 (03:53→23:32)
[2020-12-01] MEDS: Metoprolol XL (24 HR) Succ 25 MG TAB.ER.24H PO SCH (08:18)
[2020-12-01] MEDS: predniSONE 20 MG TABLET PO SCH (08:18)
[2020-12-01] MEDS: Bumetanide 1 MG TABLET PO SCH ×2 (08:18→15:48)
[2020-12-01] MEDS: *HR* HYDROcodone/Acet 5/325 mg TABLET PO PRN (12:42)
[2020-12-01] MEDS ORDERED: *HR* Warfarin 1 MG TABLET PO ONE (18:00)
[2020-12-01] MEDS: Melatonin 3 MG TABLET PO SCH (20:56)
[2020-12-02] MEDS: Ipratropium/Albuterol Neb 3 ML IH SCH ×3 (03:45→11:36)
[2020-12-02 06:47] LABS: INR 2.1; Prothrombin Time 24.3 Seconds (9.4-12.1)
[2020-12-02] MEDS: predniSONE 20 MG TABLET PO SCH (08:08)
[2020-12-02] MEDS: Bumetanide 1 MG TABLET PO SCH (08:08)
[2020-12-02] MEDS: Metoprolol XL (24 HR) Succ 25 MG TAB.ER.24H PO SCH (08:08)
[2020-12-02 10:42] VITALS: BP 100/64
[2020-12-02] MEDS ORDERED: *HR* Warfarin 2.5 MG TABLET PO ONE (18:00)
== END 2020-12-02 14:43 | DRG 291 ==
LOC: 3BNU 15:09 → EMEROOARM 15:09 → SUATTDRO 21:04 → 3BNU 21:39 → SUATTDRO 11-28 13:20
PROVIDERS: ADMIT Internal Medicine; ATTEND Internal Medicine

== ENCOUNTER 2021-01-15 12:51 | Inpatient (IN) ==
[2021-01-15 14:10] LABS: Basophils % 0.4 %; Eosinophils # 0.1 K/mcL (0.0-0.6); Eosinophils % 1.4 %; Hematocrit 34.2 % (35.3-44.9); Hemoglobin 11.1 g/dL (11.5-15.4); Immature Granulocytes % 0.2 % (0-4); Lymphocytes % 19.8 %; Mean Corpuscular HGB Conc 32.5 g/dL (31.6-35.5); Mean Corpuscular Hemoglobin 31.4 pg (28.0-33.3); Mean Corpuscular Volume 96.6 fL (83.0-100.0); Mean Platelet Volume 9.9 fL (9.4-12.4); Monocytes # 0.4 K/mcL (0.0-1.3); Monocytes % 8.6 %; Neutrophils # 3.5 K/mcL (1.6-8.9); Platelet Count 236 K/mcL (140-400); Red Blood Count 3.54 M/mcL (3.82-4.97); Red Cell Distribution Width 13.3 % (11.5-14.5); Segmented Neutrophils % 69.6 %
[2021-01-15] MEDS ORDERED: Ipratropium/Albuterol Neb 3 ML IH ONE (14:33)
[2021-01-15 14:34] LABS: BUN/Creatinine Ratio 21 (6-26); Blood Urea Nitrogen 20 mg/dL (8-23); Calcium 8.8 mg/dL (8.6-10.3); Carbon Dioxide 34 mEq/L (23-29); Chloride 100 mEq/L (98-107); Glucose 109 mg/dL (70-105); Osmolality,Calculated 295 (280-300); Potassium 3.5 mEq/L (3.5-5.1); Sodium 141 mEq/L (136-145); Troponin I < 0.03 ng/mL (< 0.04); eGFR For African Americans > 60 (> 60); eGFR For Non-African Americans 55 (> 60)
[2021-01-15] MEDS ORDERED: Furosemide 40 MG/4 ML VIAL IVP ONE ×2 (14:34→19:27)
[2021-01-15 17:09] LABS: INR 3.7; Prothrombin Time 40.8 Seconds (9.4-12.1)
[2021-01-15] MEDS ORDERED: Nitroglycerin 0.4 MG TAB.SUBL SL STA (19:27)
[2021-01-15] MEDS ORDERED: Naloxone 0.4 MG/ML INJ IVP PRN (23:02)
[2021-01-16] MEDS ORDERED: Melatonin 3 MG TABLET PO PRN (00:06)
[2021-01-16] MEDS ORDERED: tiZANidine 4 MG TABLET PO ONE (00:15)
[2021-01-16] MEDS: Acetaminophen 325 MG TABLET PO PRN (00:38)
[2021-01-16 00:48] LABS: Hemoglobin 10.4 g/dL (11.5-15.4); Mean Corpuscular HGB Conc 31.5 g/dL (31.6-35.5); Mean Corpuscular Hemoglobin 30.9 pg (28.0-33.3); Mean Corpuscular Volume 97.9 fL (83.0-100.0); Mean Platelet Volume 9.8 fL (9.4-12.4); Platelet Count 234 K/mcL (140-400); Red Blood Count 3.37 M/mcL (3.82-4.97); Red Cell Distribution Width 13.4 % (11.5-14.5); White Blood Count 5.6 K/mcL (4.3-11.1)
[2021-01-16 01:00] LABS: % Iron Saturation 17 % (15-50); BUN/Creatinine Ratio 23 (6-26); Blood Urea Nitrogen 23 mg/dL (8-23); Calcium 8.8 mg/dL (8.6-10.3); Carbon Dioxide 33 mEq/L (23-29); Chloride 101 mEq/L (98-107); Chol/HDL Ratio 2.6 (0-4.9); Cholesterol 202 mg/dL (< 200); Glucose 86 mg/dL (70-105); HDL Cholesterol 78 mg/dL (40-59); Iron 62 mcg/dL (50-170); LDL Cholesterol,Calculated 102 mg/dL (< 100); Magnesium 2.1 mg/dL (1.6-2.6); Osmolality,Calculated 295 (280-300); Potassium 3.2 mEq/L (3.5-5.1); Sodium 141 mEq/L (136-145); Transferrin 255 mg/dL (203-362); Triglycerides 109 mg/dL (< 150); eGFR For African Americans > 60 (> 60); eGFR For Non-African Americans 52 (> 60)
[2021-01-16 01:01] LABS: Troponin I < 0.03 ng/mL (< 0.04)
[2021-01-16 01:05] LABS: INR 3.2; Prothrombin Time 36.1 Seconds (9.4-12.1)
[2021-01-16 01:14] LABS: Thyroid Stimulating Hormone 7.274 mcIU/mL (0.340-5.600)
[2021-01-16 01:20] LABS: Ferritin 43 ng/mL (10-120)
[2021-01-16 01:25] LABS: Folate > 22.3 ng/mL (3.0-16.0); Vitamin B12 165 pg/mL (250-1100)
[2021-01-16] MEDS: Lactobacillus 1 EACH CAP.SPRINK PO SCH (08:09)
[2021-01-16] MEDS: Furosemide 20 MG/2 ML VIAL IVP SCH ×2 (08:10→21:10)
[2021-01-16] MEDS: Metoprolol XL (24 HR) Succ 25 MG TAB.ER.24H PO SCH (08:10)
[2021-01-16 09:18] LABS: Troponin I < 0.03 ng/mL (< 0.04)
[2021-01-16] MEDS: Budesonide/Formoterol 80/4.5 1 PUFF INH IH SCH (11:07)
[2021-01-16 11:19] LABS: Thyroid Stimulating Hormone 5.652 mcIU/mL (0.340-5.600)
[2021-01-16] MEDS ORDERED: *HR* Warfarin 4 MG TABLET PO ONE (18:00)
[2021-01-16] MEDS ORDERED: Warfarin perPT PO PRN (18:00)
[2021-01-16] MEDS: tiZANidine 4 MG TABLET PO PRN (21:17)
[2021-01-17] MEDS: Budesonide/Formoterol 80/4.5 1 PUFF INH IH SCH (08:03)
[2021-01-17] MEDS: Metoprolol XL (24 HR) Succ 25 MG TAB.ER.24H PO SCH (09:12)
[2021-01-17] MEDS: Lactobacillus 1 EACH CAP.SPRINK PO SCH (09:12)
[2021-01-17] MEDS: Furosemide 20 MG/2 ML VIAL IVP SCH ×2 (09:14→20:21)
[2021-01-17 09:27] LABS: Hematocrit 35.5 % (35.3-44.9); Mean Corpuscular Hemoglobin 30.2 pg (28.0-33.3); Mean Corpuscular Volume 97.5 fL (83.0-100.0); Mean Platelet Volume 9.6 fL (9.4-12.4); Platelet Count 253 K/mcL (140-400); Red Blood Count 3.64 M/mcL (3.82-4.97); Red Cell Distribution Width 13.4 % (11.5-14.5); White Blood Count 5.7 K/mcL (4.3-11.1)
[2021-01-17 09:36] LABS: INR 2.4; Prothrombin Time 26.7 Seconds (9.4-12.1)
[2021-01-17 09:49] LABS: BUN/Creatinine Ratio 26 (6-26); Blood Urea Nitrogen 25 mg/dL (8-23); Calcium 9.3 mg/dL (8.6-10.3); Carbon Dioxide 28 mEq/L (23-29); Chloride 101 mEq/L (98-107); Glucose 112 mg/dL (70-105); Osmolality,Calculated 293 (280-300); Potassium 3.5 mEq/L (3.5-5.1); Sodium 139 mEq/L (136-145); eGFR For African Americans > 60 (> 60); eGFR For Non-African Americans 54 (> 60)
[2021-01-17] MEDS ORDERED: Isovue-370 500 ML BOTTLE IVP ONE (12:12)
[2021-01-17] MEDS: Ipratropium/Albuterol Neb 3 ML IH SCH ×2 (14:04→14:05)
[2021-01-17] MEDS: predniSONE 20 MG TABLET PO SCH (14:19)
[2021-01-17] MEDS: Azithromycin 500 MG in 0.9 % Sodium Chloride 250 ML IVPB SCH (14:20)
[2021-01-17] MEDS: cefTRIAXone 1,000 MG in 0.9 % Sodium Chloride Mini Bag 100 ML IVPB SCH (14:21)
[2021-01-17] MEDS ORDERED: predniSONE 10 MG TABLET PO SCH (18:00)
[2021-01-17] MEDS ORDERED: *HR* Warfarin 4 MG TABLET PO ONE (18:00)
[2021-01-17] MEDS: predniSONE 10 MG TABLET PO SCH (19:04)
[2021-01-18] MEDS: predniSONE 10 MG TABLET PO SCH ×2 (00:28→05:43)
[2021-01-18] MEDS ORDERED: predniSONE 10 MG TABLET PO SCH ×2 (01:00→07:00)
[2021-01-18 06:34] LABS: Hematocrit 31.4 % (35.3-44.9); Hemoglobin 10.3 g/dL (11.5-15.4); Mean Corpuscular HGB Conc 32.8 g/dL (31.6-35.5); Mean Corpuscular Hemoglobin 31.6 pg (28.0-33.3); Mean Corpuscular Volume 96.3 fL (83.0-100.0); Mean Platelet Volume 9.8 fL (9.4-12.4); Platelet Count 251 K/mcL (140-400); Red Blood Count 3.26 M/mcL (3.82-4.97); Red Cell Distribution Width 13.3 % (11.5-14.5); White Blood Count 5.2 K/mcL (4.3-11.1)
[2021-01-18 06:43] LABS: INR 2.7; Prothrombin Time 30.2 Seconds (9.4-12.1)
[2021-01-18 06:55] LABS: Alanine Aminotransferase 15 Units/L (7-52); Albumin 3.8 g/dL (3.5-5.7); Albumin/Globulin Ratio 1.4 (1.1-2.2); Alkaline Phosphatase 97 Units/L (34-104); Aspartate Amino Transferase 23 Units/L (13-39); BUN/Creatinine Ratio 31 (6-26); Bilirubin,Total 0.4 mg/dL (0.3-1.0); Blood Urea Nitrogen 26 mg/dL (8-23); Carbon Dioxide 26 mEq/L (23-29); Chloride 105 mEq/L (98-107); Globulin 2.8 g/dL (2.4-3.5); Glucose 147 mg/dL (70-105); Osmolality,Calculated 293 (280-300); Potassium 4.1 mEq/L (3.5-5.1); Sodium 138 mEq/L (136-145); Total Protein 6.6 g/dL (6.4-8.9); eGFR For African Americans > 60 (> 60); eGFR For Non-African Americans > 60 (> 60)
[2021-01-18] MEDS: Budesonide/Formoterol 80/4.5 1 PUFF INH IH SCH (07:49)
[2021-01-18] MEDS: cefTRIAXone 1,000 MG in 0.9 % Sodium Chloride Mini Bag 100 ML IVPB SCH (08:38)
[2021-01-18] MEDS: Lactobacillus 1 EACH CAP.SPRINK PO SCH (08:39)
[2021-01-18] MEDS: Furosemide 20 MG/2 ML VIAL IVP SCH ×2 (08:39→21:01)
[2021-01-18] MEDS: tiZANidine 4 MG TABLET PO PRN (08:39)
[2021-01-18] MEDS: predniSONE 20 MG TABLET PO SCH (08:39)
[2021-01-18] MEDS: Metoprolol XL (24 HR) Succ 25 MG TAB.ER.24H PO SCH (08:40)
[2021-01-18] MEDS: Azithromycin 500 MG in 0.9 % Sodium Chloride 250 ML IVPB SCH (14:26)
[2021-01-18] MEDS ORDERED: *HR* Warfarin 3 MG TABLET PO ONE (18:00)
[2021-01-19 01:50] LABS: Hematocrit 31.2 % (35.3-44.9); Hemoglobin 9.8 g/dL (11.5-15.4); Mean Corpuscular HGB Conc 31.4 g/dL (31.6-35.5); Mean Corpuscular Hemoglobin 30.3 pg (28.0-33.3); Mean Corpuscular Volume 96.6 fL (83.0-100.0); Platelet Count 262 K/mcL (140-400); Red Blood Count 3.23 M/mcL (3.82-4.97); Red Cell Distribution Width 13.5 % (11.5-14.5)
[2021-01-19 01:58] LABS: White Blood Count 9.5 K/mcL (4.3-11.1)
[2021-01-19 01:59] LABS: INR 2.9
[2021-01-19 02:16] LABS: Albumin 3.9 g/dL (3.5-5.7); Albumin/Globulin Ratio 1.5 (1.1-2.2); Bilirubin,Total 0.4 mg/dL (0.3-1.0); Globulin 2.6 g/dL (2.4-3.5); Potassium 3.7 mEq/L (3.5-5.1); Total Protein 6.5 g/dL (6.4-8.9)
[2021-01-19] MEDS: Lactobacillus 1 EACH CAP.SPRINK PO SCH (07:43)
[2021-01-19] MEDS: Metoprolol XL (24 HR) Succ 25 MG TAB.ER.24H PO SCH (07:43)
[2021-01-19] MEDS: predniSONE 20 MG TABLET PO SCH (07:43)
[2021-01-19] MEDS: cefTRIAXone 1,000 MG in 0.9 % Sodium Chloride Mini Bag 100 ML IVPB SCH (07:44)
[2021-01-19] MEDS: Budesonide/Formoterol 80/4.5 1 PUFF INH IH SCH (07:58)
[2021-01-19 11:24] LABS: Adenovirus Not Detected (Not Detect); Bordetella Pertussis Not Detected (Not Detect); Chlamydophila pneumoniae Not Detected (Not Detect); Coronavirus 229E Not Detected (Not Detect); Coronavirus HKU1 Not Detected (Not Detect); Coronavirus NL63 Not Detected (Not Detect); Coronavirus OC43 Not Detected (Not Detect); Human Metapneumovirus Not Detected (Not Detect); Human Rhinovirus/Enterovirus Not Detected (Not Detect); Influenza A Subtype 2009 H1 Not Detected (Not Detect); Influenza B Not Detected (Not Detect); Mycoplasma pneumoniae Not Detected (Not Detect); Parainfluenza Virus 1 Not Detected (Not Detect); Parainfluenza Virus 2 Not Detected (Not Detect); Parainfluenza Virus 3 Not Detected (Not Detect); Parainfluenza Virus 4 Not Detected (Not Detect); Respiratory Syncytial Virus Not Detected (Not Detect); SARS-CoV-2 Not Detected (Not Detect)
[2021-01-19] MEDS: Azithromycin 500 MG in 0.9 % Sodium Chloride 250 ML IVPB SCH (13:03)
[2021-01-19] MEDS: Acetaminophen 325 MG TABLET PO PRN (15:57)
[2021-01-19] MEDS ORDERED: *HR* Warfarin 3 MG TABLET PO ONE (18:00)
[2021-01-19] MEDS ORDERED: Warfarin 1 MG, Warfarin 0.5 MG PO ONE (18:00)
[2021-01-20 04:38] LABS: Hematocrit 31.1 % (35.3-44.9); Hemoglobin 10.1 g/dL (11.5-15.4); Mean Corpuscular HGB Conc 32.5 g/dL (31.6-35.5); Mean Corpuscular Hemoglobin 31.4 pg (28.0-33.3); Mean Corpuscular Volume 96.6 fL (83.0-100.0); Mean Platelet Volume 9.8 fL (9.4-12.4); Platelet Count 253 K/mcL (140-400); Red Blood Count 3.22 M/mcL (3.82-4.97); Red Cell Distribution Width 13.8 % (11.5-14.5)
[2021-01-20 04:48] LABS: INR 2.3; Prothrombin Time 25.5 Seconds (9.4-12.1)
[2021-01-20 04:56] LABS: BUN/Creatinine Ratio 40 (6-26); Blood Urea Nitrogen 36 mg/dL (8-23); Calcium 8.9 mg/dL (8.6-10.3); Carbon Dioxide 24 mEq/L (23-29); Chloride 106 mEq/L (98-107); Glucose 85 mg/dL (70-105); Osmolality,Calculated 296 (280-300); Potassium 3.7 mEq/L (3.5-5.1); Sodium 139 mEq/L (136-145); eGFR For African Americans > 60 (> 60); eGFR For Non-African Americans > 60 (> 60)
[2021-01-20] MEDS: Budesonide/Formoterol 80/4.5 1 PUFF INH IH SCH (08:11)
[2021-01-20] MEDS: Lactobacillus 1 EACH CAP.SPRINK PO SCH (08:38)
[2021-01-20] MEDS: predniSONE 20 MG TABLET PO SCH (08:38)
[2021-01-20] MEDS: cefTRIAXone 1,000 MG in 0.9 % Sodium Chloride Mini Bag 100 ML IVPB SCH (08:38)
[2021-01-20] MEDS: Metoprolol XL (24 HR) Succ 25 MG TAB.ER.24H PO SCH (08:38)
[2021-01-20] MEDS: Azithromycin 250 MG TABLET PO SCH (11:54)
[2021-01-20] MEDS ORDERED: Acetaminophen IV 500 MG/50 ML BAG IVPB ONE ×2 (14:26→14:27)
[2021-01-20] MEDS ORDERED: *HR* Warfarin 4 MG TABLET PO ONE (18:00)
[2021-01-21] MEDS: tiZANidine 4 MG TABLET PO PRN (01:28)
[2021-01-21 05:49] LABS: Hematocrit 30.8 % (35.3-44.9); Hemoglobin 9.7 g/dL (11.5-15.4); Mean Corpuscular HGB Conc 31.5 g/dL (31.6-35.5); Mean Corpuscular Hemoglobin 30.6 pg (28.0-33.3); Mean Corpuscular Volume 97.2 fL (83.0-100.0); Mean Platelet Volume 10.1 fL (9.4-12.4); Platelet Count 239 K/mcL (140-400); Red Blood Count 3.17 M/mcL (3.82-4.97); Red Cell Distribution Width 13.8 % (11.5-14.5); White Blood Count 7.3 K/mcL (4.3-11.1)
[2021-01-21 05:56] LABS: INR 1.7; Prothrombin Time 19.3 Seconds (9.4-12.1)
[2021-01-21 06:13] LABS: BUN/Creatinine Ratio 33 (6-26); Blood Urea Nitrogen 28 mg/dL (8-23); Calcium 8.9 mg/dL (8.6-10.3); Carbon Dioxide 26 mEq/L (23-29); Chloride 108 mEq/L (98-107); Glucose 93 mg/dL (70-105); Osmolality,Calculated 293 (280-300); Potassium 3.6 mEq/L (3.5-5.1); Sodium 139 mEq/L (136-145); eGFR For African Americans > 60 (> 60); eGFR For Non-African Americans > 60 (> 60)
[2021-01-21] MEDS: Budesonide/Formoterol 80/4.5 1 PUFF INH IH SCH (07:53)
[2021-01-21] MEDS: Lactobacillus 1 EACH CAP.SPRINK PO SCH (08:59)
[2021-01-21] MEDS: Metoprolol XL (24 HR) Succ 25 MG TAB.ER.24H PO SCH (08:59)
[2021-01-21] MEDS: Azithromycin 250 MG TABLET PO SCH (08:59)
[2021-01-21] MEDS: predniSONE 20 MG TABLET PO SCH (08:59)
[2021-01-21] MEDS: cefTRIAXone 1,000 MG in 0.9 % Sodium Chloride Mini Bag 100 ML IVPB SCH (08:59)
[2021-01-21] MEDS: Acetaminophen 325 MG TABLET PO PRN (14:15)
[2021-01-21] MEDS ORDERED: *HR* Warfarin 5 MG TABLET PO SCH (18:00)
[2021-01-22 04:50] LABS: Hemoglobin 9.7 g/dL (11.5-15.4); Mean Corpuscular HGB Conc 31.3 g/dL (31.6-35.5); Mean Corpuscular Hemoglobin 30.7 pg (28.0-33.3); Mean Corpuscular Volume 98.1 fL (83.0-100.0); Mean Platelet Volume 10.2 fL (9.4-12.4); Platelet Count 243 K/mcL (140-400); Red Blood Count 3.16 M/mcL (3.82-4.97); Red Cell Distribution Width 13.6 % (11.5-14.5); White Blood Count 7.1 K/mcL (4.3-11.1)
[2021-01-22 04:59] LABS: INR 1.9; Prothrombin Time 21.7 Seconds (9.4-12.1)
[2021-01-22] MEDS: Budesonide/Formoterol 80/4.5 1 PUFF INH IH SCH (08:02)
[2021-01-22] MEDS: predniSONE 20 MG TABLET PO SCH (08:17)
[2021-01-22] MEDS: Lactobacillus 1 EACH CAP.SPRINK PO SCH (08:17)
[2021-01-22] MEDS: Metoprolol XL (24 HR) Succ 25 MG TAB.ER.24H PO SCH (08:18)
[2021-01-22 11:45] VITALS: BP 119/71
[2021-01-22 16:44] LABS: Adenovirus Not Detected (Not Detect); Bordetella Pertussis Not Detected (Not Detect); Chlamydophila pneumoniae Not Detected (Not Detect); Coronavirus 229E Not Detected (Not Detect); Coronavirus HKU1 Not Detected (Not Detect); Coronavirus NL63 Not Detected (Not Detect); Coronavirus OC43 Not Detected (Not Detect); Human Metapneumovirus Not Detected (Not Detect); Human Rhinovirus/Enterovirus Not Detected (Not Detect); Influenza A Subtype 2009 H1 Not Detected (Not Detect); Influenza B Not Detected (Not Detect); Mycoplasma pneumoniae Not Detected (Not Detect); Parainfluenza Virus 1 Not Detected (Not Detect); Parainfluenza Virus 2 Not Detected (Not Detect); Parainfluenza Virus 3 Not Detected (Not Detect); Parainfluenza Virus 4 Not Detected (Not Detect); Respiratory Syncytial Virus Not Detected (Not Detect); SARS-CoV-2 Not Detected (Not Detect)
== END 2021-01-22 18:32 | disposition other institution (70) | DRG 292 ==
LOC: 3BNU 12:51 → EMEROOARM 12:51 → SUATTDRO 19:57 → 3BNU 20:47 → SUATTDRO 01-16 14:29
PROVIDERS: ADMIT Internal Medicine; ATTEND Registered Nurse